=== PATIENT | female | born 1970 | race African-American/Black ===

== ENCOUNTER 2018-06-09 22:01 | Emergency (ER) | payer MEDICAID, OTHER ==
[~2018-06-09] VITALS: Ht 162.6 cm; Wt 89.6 kg
[2018-06-09] MEDS ORDERED: ASPI-496 PO (22:29)
[2018-06-09 22:34] VITALS: BP 125/84
[2018-06-09] MEDS ORDERED: KETOROLAC 30 MG/1 ML ONE (22:56)
[2018-06-09] MEDS ORDERED: KETOROLAC 30 MG/1 ML IVPush ONE (23:00)
[2018-06-09] MEDS ORDERED: SODIUM CHLORIDE FLUSH 10ML SYR IVF ONE (23:00)
[2018-06-09 23:03] LABS: BASOPHILS # (AUTO) 0.01 x10^3/uL (0-0.1); BASOPHILS % (AUTO) 0 % (0-1); EOSINOPHILS # (AUTO) 0.11 x10^3/uL (0-0.4); EOSINOPHILS % (AUTO) 2 % (1-7); LYMPHOCYTES # (AUTO) 2.36 x10^3/uL (1-3.4); LYMPHOCYTES % (AUTO) 36 % (22-44); MD NO; MEAN CORPUSCULAR HEMOGLOBIN 29.3 pg (27.0-34.8); MEAN CORPUSCULAR HGB CONC 33.6 g/dL (32.4-35.8); MEAN PLATELET VOLUME 8.2 fL (7.4-10.4); MONOCYTES # (AUTO) 0.45 x10^3/uL (0.2-0.8); MONOCYTES % (AUTO) 7 % (2-9); NEUTROPHILS # (AUTO) 3.62 x10^3/uL (1.8-6.8); NEUTROPHILS % (AUTO) 55 % (42-75); PLATELET COUNT 264 x10^3/uL (130-400); RED BLOOD COUNT 4.55 x10^6/uL (3.82-5.3); RED CELL DISTRIBUTION WIDTH 14.6 % (9.6-15.2)
[2018-06-09 23:14] LABS: ALANINE AMINOTRANSFERASE 20 U/L (12-78); ALBUMIN 3.5 g/dL (3.4-5.0); ANION GAP 6 mmol/L (5-15); CHLORIDE 109 mmol/L (98-107); CREATININE 0.79 mg/dL (0.55-1.02)
[2018-06-09 23:19] LABS: ALKALINE PHOSPHATASE 75 U/L (45-117); BILIRUBIN,TOTAL 0.6 mg/dL (0.2-1.0); TOTAL PROTEIN 7.4 g/dL (6.4-8.2); TROPONIN I < 0.015 ng/mL (0.000-0.045)
[2018-06-09 23:35] LABS: D-DIMER < 0.19 ug/mlFEU (0.00-0.52); INTERNATIONAL NORMALIZED RATIO 0.97 (0.93-1.1); PARTIAL THROMBOPLASTIN TIME 27 Seconds (25-31)
[2018-06-09] MEDS ORDERED: MORPHINE SULFATE 4 MG/ML, 1ML ONE (23:58)
[2018-06-09] MEDS ORDERED: ONDANSETRON ODT 4 MG ONE (23:59)
[2018-06-10] MEDS ORDERED: MORPHINE SULFATE 4 MG/ML, 1ML IVPush PRN
[2018-06-10] MEDS ORDERED: ONDANSETRON ODT 4 MG PO ONE
== END 2018-06-10 00:20 | disposition home or self-care (01) ==
LOC: ED 23:59
DX: M94.0 Chondrocostal junction syndrome [Tietze] (principal); F17.200 Nicotine dependence, unspecified, uncomplicated; R51 Headache; Z88.5 Allergy status to narcotic agent; Z88.6 Allergy status to analgesic agent
CPT/HCPCS: 36415; 71046; 80053; 83880; 84484; 85025; 85379; 85610; 85730; 93005; 96374; 96375; 99285; J1885; Q0162

== ENCOUNTER 2019-04-11 09:59 | Outpatient (CLI) | payer OTHER ==
[~2019-04-11 09:59] MED LIST: ASPI-496 PO
== END 2019-04-11 23:59 | disposition home or self-care (01) ==
LOC: STAR 09:59
PROVIDERS: ATTEND Obstetrics & Gynecology Female Pelvic Medicine and Reconstructive Surgery
DX: Z01.818 Encounter for other preprocedural examination (principal); N81.4 Uterovaginal prolapse, unspecified
CPT/HCPCS: 93005

== ENCOUNTER 2019-04-18 05:33 | Day surgery (SDC) | payer OTHER ==
[~2019-04-18] VITALS: Ht 162.6 cm; Wt 93.8 kg
[2019-04-18 06:20] VITALS: BP 128/93
[2019-04-18] MEDS ORDERED: LACTATED RINGERS 1,000 ML IV SCH (06:23)
[2019-04-18] MEDS ORDERED: BUPIVACAINE/PF 0.25% ONE (06:36)
[2019-04-18] MEDS ORDERED: EPINEPHRINE 1 MG/ML, 1ML ONE (06:36)
[2019-04-18] MEDS ORDERED: NEOMY/POLYMYXIN B GU IRR. 1 ML ONE (06:37)
[2019-04-18 07:04] LABS: HCG UR SG 1.015 (1.003-1.030)
[2019-04-18] MEDS ORDERED: FENTANYL PF 250 MCG/5ML ONE (07:24)
[2019-04-18] MEDS ORDERED: MIDAZOLAM 1 MG/ML, 2ML ONE (07:24)
[2019-04-18] MEDS ORDERED: hydrALAzine 20 MG/ML, 1ML IV PRN (07:30)
[2019-04-18] MEDS ORDERED: HYDROmorphone 2 MG/ML, 1ML IVPush PRN (07:30)
[2019-04-18] MEDS ORDERED: LABETALOL 5MG/ML, 20ML IV PRN (07:30)
[2019-04-18] MEDS ORDERED: PROCHLORPERAZINE 5 MG/ML, 2ML IV PRN (07:30)
[2019-04-18] MEDS ORDERED: HALOPERIDOL 5 MG/ML IV PRN ×2 (07:30)
[2019-04-18] MEDS ORDERED: OXYcodone 5 MG/5 ML ORAL.SOL UDC PO PRN (07:30)
[2019-04-18] MEDS ORDERED: ALBUTEROL SULFATE 2.5 MG/3 ML NPPB PRN (07:30)
[2019-04-18] MEDS ORDERED: PROMETHAZINE 25 MG/ML, 1ML IV PRN (07:30)
[2019-04-18] MEDS ORDERED: GABAPENTIN 300 MG CAPSULE PO ONE (07:30)
[2019-04-18] MEDS ORDERED: METOPROLOL 1 MG/ML, 5ML IV PRN (07:30)
[2019-04-18] MEDS ORDERED: ALBUTEROL/IPRATROPIUM 2.5MG/0.5MG, 3 ML NPPB PRN (07:30)
[2019-04-18] MEDS ORDERED: MEPERIDINE/PF 25MG/0.5ML IVPush PRN (07:30)
[2019-04-18] MEDS ORDERED: DIPHENHYDRAMINE 50 MG/ML, 1ML IVPush PRN (07:30)
[2019-04-18] MEDS ORDERED: ACETAMINOPHEN 500 MG TABLET PO ONE (07:30)
[2019-04-18] MEDS ORDERED: FENTANYL PF 100 MCG/2ML ONE (09:23)
[2019-04-18] MEDS ORDERED: KETOROLAC 30 MG/1 ML ONE (09:23)
[2019-04-18] MEDS ORDERED: OXYcodone 5 MG/5 ML ORAL.SOL UDC ONE (09:24)
[2019-04-18] MEDS: FENTANYL PF 100 MCG/2ML IV PRN ×2 (09:26→09:35)
[2019-04-18] MEDS ORDERED: KETOROLAC 30 MG/1 ML IVPush ONE (09:30)
[2019-04-18] MEDS ORDERED: ALBUTEROL/IPRATROPIUM 2.5MG/0.5MG, 3 ML ONE (09:42)
[2019-04-18] MEDS ORDERED: SUCCINYLCHOLINE 20 MG/ML, 10ML ONE (11:01)
[2019-04-18] MEDS ORDERED: GLYCOPYRROLATE 0.2MG/1ML, 5ML ONE (11:01)
[2019-04-18] MEDS ORDERED: CEFAZOLIN 1,000 MG ONE (11:01)
[2019-04-18] MEDS ORDERED: ONDANSETRON 2MG/ML, 2ML ONE (11:01)
[2019-04-18] MEDS ORDERED: DEXAMETHASONE 4 MG/ML, 1ML ONE (11:01)
[2019-04-18] MEDS ORDERED: ROCURONIUM 10MG/ML,5ML ONE (11:01)
[2019-04-18] MEDS ORDERED: NEOSTIGMINE 1 MG/ML, 10ML ONE (11:01)
[2019-04-18] MEDS ORDERED: PROPOFOL 10 MG/ML, 20ML ONE (11:01)
== END 2019-04-18 14:45 | disposition home or self-care (01) ==
LOC: OR 05:33
PROVIDERS: ATTEND Obstetrics & Gynecology Female Pelvic Medicine and Reconstructive Surgery
DX: N81.4 Uterovaginal prolapse, unspecified (principal); N80.0 Endometriosis of uterus; N83.292 Other ovarian cyst, left side; N83.291 Other ovarian cyst, right side; N94.10 Unspecified dyspareunia; N39.46 Mixed incontinence; N32.81 Overactive bladder; F41.9 Anxiety disorder, unspecified; F17.210 Nicotine dependence, cigarettes, uncomplicated; Z98.890 Other specified postprocedural states; Z72.89 Other problems related to lifestyle; Z88.8 Allergy status to other drugs, medicaments and biological substances; Z88.5 Allergy status to narcotic agent
CPT/HCPCS: 57265; 57282; 57288; 58552; 81025; 88305; 94640; C1771; J0171; J0330; J0690; J1100; J1885; J2250; J2405; J2704; J2710; J3010; J3490; J7120; J7620

== ENCOUNTER 2020-01-05 22:14 | Emergency (ER) | payer OTHER ==
[~2020-01-05] VITALS: Ht 162.6 cm; Wt 83.0 kg
[2020-01-05 22:21] VITALS: BP 113/94
== END 2020-01-05 22:48 | disposition home or self-care (01) ==
LOC: ED 22:30
DX: R50.9 Fever, unspecified (principal); M79.10 Myalgia, unspecified site; Z53.21 Procedure and treatment not carried out due to patient leaving prior to being seen by health care provider

== ENCOUNTER 2020-03-06 01:31 | Emergency (ER) | payer OTHER ==
[~2020-03-06] VITALS: Ht 162.6 cm; Wt 67.8 kg
[~2020-03-06 01:31] MED LIST changes: +METH10TA6 PO; +POTA20PA25 PO
[2020-03-06] MEDS ORDERED: KETOROLAC 60 MG/2 ML ONE (02:09)
[2020-03-06] MEDS ORDERED: HYDROmorphone 1 MG/ML, 1ML INJ ONE (02:09)
[2020-03-06] MEDS ORDERED: KETOROLAC 30 MG/1 ML IM ONE (02:30)
[2020-03-06] MEDS ORDERED: HYDROmorphone 1 MG/ML, 1ML INJ IM ONE (02:30)
--- NOTE | 2020-03-06 02:31 | NUR ---
Patient presents to ER c/o right arm pain x1 day. Patient denies trauma. She states she was hospitalized recently and had multiple blood draws in that arm. Denies swelling. No other associated symptoms including fever. Patient is in NAD. Respirations even and unlabored.
[2020-03-06 02:41] LABS: MEAN CORPUSCULAR HEMOGLOBIN 24.4 pg (27.0-34.8); MEAN CORPUSCULAR HGB CONC 32.4 g/dL (32.4-35.8); MEAN CORPUSCULAR VOLUME 75.2 fL (80-100); MEAN PLATELET VOLUME 10.3 fL (7.4-10.4); PLATELET COUNT 225 x10^3/uL (130-400); RED CELL DISTRIBUTION WIDTH 14.6 % (9.6-15.2)
[2020-03-06 02:48] LABS: ALBUMIN 2.8 g/dL (3.4-5.0); ANION GAP 5 mmol/L (5-15); CALCIUM 8.9 mg/dL (8.5-10.1); CHLORIDE 106 mmol/L (98-107)
[2020-03-06 02:52] LABS: ALANINE AMINOTRANSFERASE 48 U/L (12-78); ALKALINE PHOSPHATASE 126 U/L (45-117); BILIRUBIN,TOTAL 0.5 mg/dL (0.2-1.0); CREATININE 0.64 mg/dL (0.55-1.02); TOTAL PROTEIN 6.6 g/dL (6.4-8.2)
--- NOTE | 2020-03-06 02:54 | NUR ---
US in room
[2020-03-06 02:56] LABS: BASOPHILS # (AUTO) 0.01 x10^3/uL (0-0.1); BASOPHILS % (AUTO) 0 % (0-1); EOSINOPHILS # (AUTO) 0.02 x10^3/uL (0-0.4); EOSINOPHILS % (AUTO) 1 % (1-7); LYMPHOCYTES # (AUTO) 1.13 x10^3/uL (1-3.4); LYMPHOCYTES % (AUTO) 30 % (22-44); MD SCAN; MONOCYTES # (AUTO) 0.58 x10^3/uL (0.2-0.8); MONOCYTES % (AUTO) 16 % (2-9); NEUTROPHILS # (AUTO) 1.97 x10^3/uL (1.8-6.8); NEUTROPHILS % (AUTO) 53 % (42-75)
[2020-03-06] MEDS ORDERED: POTASSIUM CHLORIDE 20 MEQ TAB.ER.PRT ONE (03:12)
[2020-03-06 03:23] VITALS: BP 98/65
[2020-03-06] MEDS ORDERED: POTASSIUM CHLORIDE 20 MEQ TAB.ER.PRT PO ONE (03:30)
--- NOTE | 2020-03-06 03:49 | NUR ---
Discharge instructions given. All questions and concerns addressed. Patient ambulatory with a steady gait. Belongings with patient.
== END 2020-03-06 03:50 | disposition home or self-care (01) ==
LOC: ED 03:17
DX: M79.621 Pain in right upper arm (principal); E87.6 Hypokalemia; E05.90 Thyrotoxicosis, unspecified without thyrotoxic crisis or storm; E83.52 Hypercalcemia; R94.31 Abnormal electrocardiogram [ECG] [EKG]
CPT/HCPCS: 36415; 80053; 85025; 93005; 93971; 96372; 99285; J1170; J1885

== ENCOUNTER 2020-03-09 09:55 | Inpatient (IN) | payer OTHER ==
[~2020-03-09] VITALS: Ht 162.6 cm; Wt 67.2 kg
--- NOTE | 2020-03-09 10:11 | NUR ---
PT IN HOSPITAL GOWN. PT ON VITALS MONITORS. PT REFUSED ZOFRAN FROM EMS. STATED SHE FEELS MOSTLY WEAK AT THIS TIME. PT GIVEN SHEET TEMP IS SLIGHTLY INCREASED. AWAITING ERP EVAL.
--- NOTE | 2020-03-09 11:18 | NUR ---
2ND POLISHER BRASS IN TO DRAW PT.
--- NOTE | 2020-03-09 11:36 | NUR ---
LAB TO SEND ANOTHER TECH, 2ND LOUVER MORTISER OPERATOR UNABLE TO GET BLOOD. PT C/O RIGH ARM PAIN, STATED SHE HAS SEEN A NEUROLOGIST FOR IT, BUT RIGHT ARM IS STILL PAINFUL. ASSISTED PT O BEDSIDE COMMODE. ABLE TO GET URINE SAMPLE. URINE WALKED TO LAB.
--- NOTE | 2020-03-09 12:01 | NUR ---
URINE NOT SHOWIN PENDING, LAB CALLED STATED THEY HAVE RECEIVED SAMPLE. STILL AWAITING ASSOCIATE AGENT [employer]ES TO COME DRAW PT. PT RESTING CALMLY IN BED WITH EYES CLOSED. NO STATED COMPLAINTS AT THIS TIME.
--- NOTE | 2020-03-09 12:21 | NUR ---
LAB ABLE TO DRAW PT BLOOD.
[2020-03-09 12:26] LABS: MEAN CORPUSCULAR HEMOGLOBIN 24.5 pg (27.0-34.8); MEAN CORPUSCULAR VOLUME 74.1 fL (80-100); MEAN PLATELET VOLUME 9.2 fL (7.4-10.4); PLATELET COUNT 309 x10^3/uL (130-400); RED BLOOD COUNT 5.14 x10^6/uL (3.82-5.3); RED CELL DISTRIBUTION WIDTH 14.9 % (9.6-15.2)
[2020-03-09 12:29] LABS: MICROSCOPIC INDICATED
[2020-03-09 12:32] LABS: INTERNATIONAL NORMALIZED RATIO 1.04 (0.93-1.1)
[2020-03-09 12:34] LABS: ALANINE AMINOTRANSFERASE 41 U/L (12-78); ALBUMIN 2.9 g/dL (3.4-5.0); ANION GAP 12 mmol/L (5-15); CALCIUM 8.4 mg/dL (8.5-10.1); CHLORIDE 108 mmol/L (98-107); CREATININE 0.48 mg/dL (0.55-1.02)
[2020-03-09 12:39] LABS: ALKALINE PHOSPHATASE 142 U/L (45-117); BILIRUBIN,TOTAL 0.8 mg/dL (0.2-1.0); TOTAL PROTEIN 7.4 g/dL (6.4-8.2)
[2020-03-09 13:05] LABS: FREE T4 (FREE THYROXINE) 3.68 ng/dL (0.76-1.46)
[2020-03-09 13:06] LABS: BASOPHILS # (AUTO) 0.05 x10^3/uL (0-0.1); BASOPHILS % (AUTO) 1 % (0-1); EOSINOPHILS # (AUTO) 0.01 x10^3/uL (0-0.4); EOSINOPHILS % (AUTO) 0 % (1-7); LYMPHOCYTES # (AUTO) 1.37 x10^3/uL (1-3.4); LYMPHOCYTES % (AUTO) 33 % (22-44); MD SCAN; MONOCYTES # (AUTO) 0.82 x10^3/uL (0.2-0.8); MONOCYTES % (AUTO) 20 % (2-9); NEUTROPHILS # (AUTO) 1.93 x10^3/uL (1.8-6.8); NEUTROPHILS % (AUTO) 46 % (42-75)
[2020-03-09] MEDS ORDERED: OXYcodone/APAP 5/325MG TABLET ONE (13:14)
[2020-03-09] MEDS ORDERED: LABETALOL 5MG/ML, 20ML ONE (13:16)
[2020-03-09] MEDS ORDERED: OXYcodone/APAP 5/325MG TABLET PO ONE (13:30)
[2020-03-09] MEDS ORDERED: LABETALOL 5MG/ML, 20ML IVPush ONE (13:30)
--- NOTE | 2020-03-09 13:38 | NUR ---
PT MEDICATED FOR PAIN IN RIGHT ARM. PT MADE AWARE THAT SHE IS TO BE ADMITTED. VSS, WILL CONTINUE TO MONITOR.
[2020-03-09] MEDS ORDERED: DOCUSATE 100 MG CAPSULE PO PRN (14:30)
[2020-03-09] MEDS ORDERED: ONDANSETRON 2MG/ML, 2ML IVPush PRN (14:30)
[2020-03-09] MEDS ORDERED: IBUPROFEN 600 MG TABLET PO PRN (14:30)
[2020-03-09] MEDS ORDERED: ONDANSETRON ODT 4 MG PO PRN (14:30)
[2020-03-09] MEDS ORDERED: ACETAMINOPHEN 325 MG TABLET PO PRN (14:30)
[2020-03-09] MEDS ORDERED: POLYETHYLENE GLYCOL 17 GM PACKET PO PRN (14:30)
--- NOTE | 2020-03-09 14:52 | NUR ---
pt resting calmly in bed. no stated needs at this time. will continue to monitor.
--- NOTE | 2020-03-09 15:22 | NUR ---
report to [facility] for room 486-2
[2020-03-09 16:40] VITALS: BP 106/68
[2020-03-09] MEDS: LACTATED RINGERS 1,000 ML IV SCH (17:04)
[2020-03-09] MEDS: ENOXAPARIN 40 MG/0.4 ML SQ SCH (17:04)
[2020-03-09] MEDS ORDERED: MORPHINE SULFATE 4 MG/ML, 1ML IVPush PRN (18:30)
[2020-03-09 18:52] VITALS: BP 114/71
[2020-03-09 19:45] VITALS: BP 100/60
[2020-03-09] MEDS: METOPROLOL TARTRATE 25 MG TAB PO SCH (19:59)
[2020-03-10 00:48] VITALS: BP 102/62
[2020-03-10] MEDS: LACTATED RINGERS 1,000 ML IV SCH (02:30)
[2020-03-10 04:10] LABS: MEAN CORPUSCULAR HEMOGLOBIN 24.3 pg (27.0-34.8); MEAN CORPUSCULAR HGB CONC 32.2 g/dL (32.4-35.8); MEAN CORPUSCULAR VOLUME 75.3 fL (80-100); MEAN PLATELET VOLUME 9.3 fL (7.4-10.4); PLATELET COUNT 310 x10^3/uL (130-400); RED BLOOD COUNT 4.93 x10^6/uL (3.82-5.3)
[2020-03-10 04:20] LABS: ANION GAP 6 mmol/L (5-15); CHLORIDE 111 mmol/L (98-107)
[2020-03-10 05:01] LABS: MD YES
[2020-03-10 05:13] LABS: BASOS#(MANUAL) 0.14 x10^3/uL (0-0.1); BASOS% (MANUAL) 4 % (0-1); EOS#(MANUAL) 0.07 x10^3/uL (0.0-0.4); EOS% (MANUAL) 2 % (1-7); LYMPH#(MANUAL) 2.52 x10^3/uL (1-3.4); LYMPHS% (MANUAL) 70 % (22-44); MONOS#(MANUAL) 0.36 x10^3/uL (0.3-2.7); MONOS% (MANUAL) 10 % (2-9); SEGS% (MANUAL) 14 % (42-75)
[2020-03-10 05:14] LABS: <PLATELET ESTIMATE> ADEQUATE; <PLT MORPHOLOGY> NORMAL PLT MORPH; ANISOCYTOSIS 1+; MICROCYTOSIS 1+
[2020-03-10 07:28] VITALS: BP 95/59
[2020-03-10 10:45] VITALS: BP 97/52
[2020-03-10] MEDS: METOPROLOL TARTRATE 25 MG TAB PO SCH ×2 (10:46→19:57)
[2020-03-10 13:07] VITALS: BP 105/67
[2020-03-10] MEDS: GABAPENTIN 300 MG CAPSULE PO SCH ×2 (15:00→19:57)
[2020-03-10] MEDS: ENOXAPARIN 40 MG/0.4 ML SQ SCH (17:27)
[2020-03-10 19:52] VITALS: BP 99/63
[2020-03-11 00:29] VITALS: BP 103/64
[2020-03-11 07:12] VITALS: BP 95/62
[2020-03-11] MEDS: METOPROLOL TARTRATE 25 MG TAB PO SCH ×3 (08:45→21:00)
[2020-03-11] MEDS: GABAPENTIN 300 MG CAPSULE PO SCH ×3 (08:45→21:00)
[2020-03-11 13:06] VITALS: BP 95/61
[2020-03-11] MEDS: ENOXAPARIN 40 MG/0.4 ML SQ SCH (16:39)
[2020-03-11 19:18] VITALS: BP 96/64
[2020-03-12 00:40] VITALS: BP 100/66
[2020-03-12 04:52] LABS: ALANINE AMINOTRANSFERASE 33 U/L (12-78); ALBUMIN 2.3 g/dL (3.4-5.0); ANION GAP 8 mmol/L (5-15); CALCIUM 7.3 mg/dL (8.5-10.1); CHLORIDE 117 mmol/L (98-107); CREATININE 0.31 mg/dL (0.55-1.02)
[2020-03-12 04:54] LABS: ALKALINE PHOSPHATASE 117 U/L (45-117); BILIRUBIN,TOTAL 0.6 mg/dL (0.2-1.0); TOTAL PROTEIN 6.2 g/dL (6.4-8.2)
[2020-03-12 06:46] VITALS: BP 93/63
[2020-03-12] MEDS: GABAPENTIN 300 MG CAPSULE PO SCH ×2 (08:30→21:00)
[2020-03-12] MEDS: METOPROLOL TARTRATE 25 MG TAB PO SCH ×2 (08:30→21:00)
[2020-03-12 12:08] VITALS: BP 95/61
[2020-03-12] MEDS: ENOXAPARIN 40 MG/0.4 ML SQ SCH (16:57)
[2020-03-12 18:56] VITALS: BP 93/60
[2020-03-13 00:19] VITALS: BP 103/61
[2020-03-13 05:06] LABS: MEAN CORPUSCULAR HEMOGLOBIN 24.2 pg (27.0-34.8); MEAN CORPUSCULAR HGB CONC 32.6 g/dL (32.4-35.8); MEAN CORPUSCULAR VOLUME 74.3 fL (80-100); MEAN PLATELET VOLUME 8.7 fL (7.4-10.4); PLATELET COUNT 372 x10^3/uL (130-400); RED BLOOD COUNT 4.43 x10^6/uL (3.82-5.3); RED CELL DISTRIBUTION WIDTH 15.3 % (9.6-15.2)
[2020-03-13 05:09] LABS: ALBUMIN 2.4 g/dL (3.4-5.0); ANION GAP 8 mmol/L (5-15); CHLORIDE 116 mmol/L (98-107)
[2020-03-13 05:38] LABS: ALANINE AMINOTRANSFERASE 37 U/L (12-78); ALKALINE PHOSPHATASE 125 U/L (45-117); BILIRUBIN,TOTAL 0.8 mg/dL (0.2-1.0); CREATININE 0.32 mg/dL (0.55-1.02); TOTAL PROTEIN 6.4 g/dL (6.4-8.2)
[2020-03-13 05:48] LABS: MD YES
[2020-03-13 05:50] LABS: BASOS#(MANUAL) 0.04 x10^3/uL (0-0.1); BASOS% (MANUAL) 1 % (0-1); LYMPH#(MANUAL) 1.56 x10^3/uL (1-3.4); LYMPHS% (MANUAL) 41 % (22-44); MONOS#(MANUAL) 0.27 x10^3/uL (0.3-2.7); MONOS% (MANUAL) 7 % (2-9); SEG#(MANUAL) 1.94 x10^3/uL (1.8-6.8); SEGS% (MANUAL) 51 % (42-75)
[2020-03-13 05:51] LABS: <PLATELET ESTIMATE> ADEQUATE; <PLT MORPHOLOGY> NORMAL PLT MORPH; ANISOCYTOSIS 1+; MICROCYTOSIS 1+
[2020-03-13 07:00] VITALS: BP 103/67
[2020-03-13] MEDS: METOPROLOL TARTRATE 25 MG TAB PO SCH (09:00)
[2020-03-13] MEDS: GABAPENTIN 300 MG CAPSULE PO SCH ×2 (09:35→22:20)
[2020-03-13 12:22] VITALS: BP 104/68
[2020-03-13] MEDS: ENOXAPARIN 40 MG/0.4 ML SQ SCH (15:56)
[2020-03-13] MEDS ORDERED: POTASSIUM PHOSPHATE 22 MEQ in SODIUM CHLORIDE 0.9% 500 ML IV ONE (17:30)
[2020-03-13 19:04] VITALS: BP 96/53
[2020-03-13] MEDS: PROPRANOLOL 10 MG TABLET PO SCH (22:20)
[2020-03-14 01:22] VITALS: BP 106/60
[2020-03-14 05:10] LABS: BASOPHILS # (AUTO) 0.03 x10^3/uL (0-0.1); BASOPHILS % (AUTO) 1 % (0-1); EOSINOPHILS # (AUTO) 0.03 x10^3/uL (0-0.4); EOSINOPHILS % (AUTO) 1 % (1-7); LYMPHOCYTES # (AUTO) 1.38 x10^3/uL (1-3.4); LYMPHOCYTES % (AUTO) 34 % (22-44); MD NO; MEAN CORPUSCULAR HEMOGLOBIN 24.3 pg (27.0-34.8); MEAN CORPUSCULAR HGB CONC 32.4 g/dL (32.4-35.8); MEAN PLATELET VOLUME 8.8 fL (7.4-10.4); MONOCYTES # (AUTO) 0.39 x10^3/uL (0.2-0.8); MONOCYTES % (AUTO) 10 % (2-9); NEUTROPHILS % (AUTO) 56 % (42-75); PLATELET COUNT 410 x10^3/uL (130-400); RED BLOOD COUNT 4.42 x10^6/uL (3.82-5.3); RED CELL DISTRIBUTION WIDTH 15.3 % (9.6-15.2)
[2020-03-14 05:21] LABS: ALBUMIN 2.5 g/dL (3.4-5.0); ANION GAP 7 mmol/L (5-15); CHLORIDE 116 mmol/L (98-107)
[2020-03-14 05:23] LABS: ALANINE AMINOTRANSFERASE 37 U/L (12-78); ALKALINE PHOSPHATASE 123 U/L (45-117); BILIRUBIN,TOTAL 0.9 mg/dL (0.2-1.0); CREATINE KINASE, TOTAL 36 U/L (26-192); CREATININE 0.34 mg/dL (0.55-1.02); TOTAL PROTEIN 6.6 g/dL (6.4-8.2)
[2020-03-14] MEDS: PROPRANOLOL 10 MG TABLET PO SCH ×2 (06:20→14:40)
[2020-03-14 06:21] VITALS: BP 87/54
[2020-03-14 07:57] VITALS: BP 96/61
[2020-03-14] MEDS: GABAPENTIN 300 MG CAPSULE PO SCH (08:22)
[2020-03-14] MEDS ORDERED: PROP10TA16 PO (13:34)
[2020-03-14] MEDS ORDERED: GABA300C PO (13:34)
[2020-03-14] MEDS ORDERED: POTA500T PO ×2 (13:34)
[2020-03-14] MEDS ORDERED: IBUP-1222 PO (13:34)
[2020-03-14 14:29] VITALS: BP 107/69
[2020-03-15] MEDS ORDERED: POTASSIUM PHOS PO (12:23)
== END 2020-03-14 15:00 | disposition home or self-care (01) | DRG 645 ==
LOC: ED 13:23 → EDIP 14:14 → 4EST 16:00 → DCLOUNGE 03-14 14:50
PROVIDERS: ADMIT Family Medicine; ATTEND Internal Medicine
DX: E05.00 Thyrotoxicosis with diffuse goiter without thyrotoxic crisis or storm (principal); D63.8 Anemia in other chronic diseases classified elsewhere; D72.821 Monocytosis (symptomatic); E83.39 Other disorders of phosphorus metabolism; E83.51 Hypocalcemia; E83.52 Hypercalcemia; E87.6 Hypokalemia; G89.29 Other chronic pain; M50.30 Other cervical disc degeneration, unspecified cervical region; M54.5 Low back pain; M79.601 Pain in right arm; I48.0 Paroxysmal atrial fibrillation; R59.1 Generalized enlarged lymph nodes; R82.90 Unspecified abnormal findings in urine; F17.210 Nicotine dependence, cigarettes, uncomplicated; R74.8 Abnormal levels of other serum enzymes; R63.4 Abnormal weight loss; Z72.89 Other problems related to lifestyle; Z90.710 Acquired absence of both cervix and uterus; Z88.6 Allergy status to analgesic agent
CPT/HCPCS: 36415; 70450; 71045; 80048; 80053; 81001; 82330; 82533; 82550; 82607; 83690; 83735; 84100; 84439; 84443; 84481; 84703; 85025; 85610; 87040; 87086; 99285; G0378; J1650; J2405; J2270; J7040; J7120

== ENCOUNTER 2020-10-01 19:08 | Emergency (ER) | payer SELFPAY ==
[~2020-10-01] VITALS: Ht 162.6 cm; Wt 76.4 kg
[~2020-10-01 19:08] MED LIST changes: +GABA300C PO; +IBUP-1222 PO; +POTA500T PO; +POTASSIUM PHOS PO; +PROP10TA16 PO
[2020-10-01] MEDS ORDERED: ONDANSETRON 2MG/ML, 2ML IVPush ONE (19:30)
[2020-10-01] MEDS ORDERED: SODIUM CHLORIDE FLUSH 10ML SYR IVF ONE (19:30)
[2020-10-01 19:44] LABS: BASOPHILS % (AUTO) 0 % (0-1); EOSINOPHILS % (AUTO) 1 % (1-7); LYMPHOCYTES % (AUTO) 59 % (22-44); MEAN CORPUSCULAR HEMOGLOBIN 28.5 pg (27.0-34.8); MEAN CORPUSCULAR HGB CONC 33.5 g/dL (32.4-35.8); MEAN PLATELET VOLUME 7.9 fL (7.4-10.4); MONOCYTES % (AUTO) 6 % (2-9); NEUTROPHILS % (AUTO) 34 % (42-75); PLATELET COUNT 284 x10^3/uL (130-400); RED BLOOD COUNT 4.99 x10^6/uL (3.82-5.3); RED CELL DISTRIBUTION WIDTH 15.9 % (9.6-15.2)
[2020-10-01] MEDS ORDERED: FLUO10CA13 PO (19:46)
[2020-10-01 19:51] LABS: ALANINE AMINOTRANSFERASE 26 U/L (12-78); ALBUMIN 3.9 g/dL (3.4-5.0); CALCIUM 9.4 mg/dL (8.5-10.1); CREATININE 0.85 mg/dL (0.55-1.02)
[2020-10-01 19:55] LABS: ALKALINE PHOSPHATASE 126 U/L (45-117); BILIRUBIN,TOTAL 0.7 mg/dL (0.2-1.0); TOTAL PROTEIN 7.7 g/dL (6.4-8.2); TROPONIN I < 0.015 ng/mL (0.000-0.045)
[2020-10-01 19:59] LABS: CHLORIDE 109 mmol/L (98-107)
[2020-10-01 20:01] LABS: MD SCAN
[2020-10-01 20:02] LABS: ANION GAP 4 mmol/L (5-15)
[2020-10-01] MEDS ORDERED: ONDANSETRON 2MG/ML, 2ML ONE ×2 (20:03→21:43)
--- NOTE | 2020-10-01 20:25 | NUR ---
BREAK RN: PATIENT MEDICATED FOR NAUSEA / VOMITING.
--- NOTE | 2020-10-01 20:51 | NUR ---
PATIENT STATES THAT HER DISCOMFORT IS DECREASING AND NAUSEA IS RELIEVED, HOWEVER HER DISCOMFORT HAS CHANGED TO FEEL LIKE GAS PRESSURE.
[2020-10-01] MEDS ORDERED: FAMOTIDINE 20 MG TABLET PO ONE (21:30)
[2020-10-01] MEDS ORDERED: MAALOX/HYOSCYAMINE/LIDOCAINE 45 ML BTL PO ONE (21:30)
[2020-10-01 22:09] VITALS: BP 156/88
--- NOTE | 2020-10-01 22:11 | NUR ---
PATIENT AMBULATORY UPON DISCHARGE FROM DEPARTMENT, RETURNED APPROPRIATE INFORMATION POST DISCHARGE, MEDICATION AND FOLLOW UP TEACHING.
== END 2020-10-01 22:13 | disposition home or self-care (01) ==
LOC: ED 21:30
DX: K29.20 Alcoholic gastritis without bleeding (principal); R07.89 Other chest pain; F17.200 Nicotine dependence, unspecified, uncomplicated; Z86.39 Personal history of other endocrine, nutritional and metabolic disease
CPT/HCPCS: 36415; 71045; 80053; 83690; 84484; 85025; 93005; 96374; 99285; J2405